=== PATIENT | female | born 1965 | race Caucasian/White ===

== ENCOUNTER → 2021-02-18 16:57 | Outpatient (CLI) | payer BC, SELFPAY ==
--- NOTE | ~2021-02-18 | XR_ITS ---
XR knee RT 3V DATE: 02/18/2021 17:12 INDICATION: Right knee pain TECHNIQUE: Casper and standing AP and lateral views COMPARISON: None FINDINGS: There is mild periarticular spurring of the patella and mild lateral shift of the patella a t the patellofemoral joint. There is minimal periarticular spurring at the medial compartment. No fracture or dislocation or joint effusion. No periosteal reaction or bone destruction. No radiopaq ue intra-articular loose body or chondrocalcinosis. Joint spaces are relatively preserved. IMPRESSION: Minimal osteoarthritis at the patellofemoral and medial compartments Reviewed, dictated and finalized at location A. IMPRESSION: Minimal osteoarthritis at the patellofemoral and medial compartment s
== END ==
PROVIDERS: PCP Family Medicine; Visit Provider Nurse Practitioner Family
DX: M17.11 Unilateral primary osteoarthritis, right knee (principal)
CPT/HCPCS: 73562

== ENCOUNTER → 2022-11-09 08:38 | Outpatient (CLI) | payer BC, SELFPAY ==
--- NOTE | ~2022-11-09 | XR_ITS ---
EXAMINATION: XR chest 2V Exam Date/Time: 11/09/2022 8:43 [employer] HISTORY: R05.3 - Chronic cough Comparison: None available. RESULT: Lines, tubes, and devices: None. Lungs and pleura: Mild diffuse reticular opacities, more prominent in today's examination. Cardiomediastinal silhouette: Stable. Other: No acute osseous or upper abdominal finding. IMPRESSION: Pulmonary opacities may represent mild bronchiolitis, as can be seen with atypical infection, asthma, aspiration, and small airways disease. Reviewed, dictated and finalized at location K. S [employer]ER IMPRESSION: Pulmonary opacities may represent mild bronchiolitis, as can be seen with atypi yogesh infection, asthma, aspiration, and small airways disease.
== END ==
PROVIDERS: PCP Nurse Practitioner Family; Visit Provider Nurse Practitioner Family
DX: R05.3 Chronic cough (principal); R91.8 Other nonspecific abnormal finding of lung field
CPT/HCPCS: 71046

== ENCOUNTER → 2023-03-11 14:17 | Outpatient (CLI) | payer BC, SELFPAY ==
--- NOTE | ~2023-03-11 | XR_ITS ---
EXAM: XR knee LT 3V DATE: 03/11/2023 14:49 HISTORY: M25.562 - Pain in left knee . COMPARISON: None available. FINDINGS: Normal mineralization. No fracture or dislocation. No lytic or blastic lesion. Moderate me dial and mild lateral joint space narrowing. Mild tricompartmental osteophytosis. Quadriceps and yonug llar tendon enthesopathy. Small volume joint fluid. No erosion or periosteal change. Soft tissues wit hin normal limits. IMPRESSION: Moderate tricompartmental knee osteoarthritis. Reviewed, dictated and finalized at location K.
== END ==
PROVIDERS: PCP Family Medicine; Visit Provider Nurse Practitioner Family
DX: M17.12 Unilateral primary osteoarthritis, left knee (principal)
CPT/HCPCS: 73562

== ENCOUNTER → 2023-05-12 10:04 | Outpatient (CLI) | payer BC, SELFPAY ==
--- NOTE | ~2023-05-12 | MM_ITS ---
EXAMINATION: MM screening francisco BI w henrietta HISTORY: Screening mammogram TECHNIQUE: Craniocaudal and mediolateral oblique 3-D tomosynthesis images were obtained and synthetic 2-D images were generated. CAD analysis was submitted and interpreted. COMPARISON: 03/22/2014 diagnostic left mammogram and left breast ultrasound 03/14/2013 bilateral screening mammogram BREAST PARENCHYMAL COMPOSITION: The breasts are almost entirely fatty. FINDINGS: There is no evidence of suspicious mass, calcification, or architectural distortion to sugg est malignancy in either breast. There has been no suspicious interval change. IMPRESSION: 1. No mammographic evidence of malignancy. 2. Recommend routine screening mammography in one year. BI-RADS Category 1: Negative Reviewed, dictated and finalized at location A.
== END ==
PROVIDERS: Visit Provider Obstetrics & Gynecology Gynecology
DX: Z12.31 Encounter for screening mammogram for malignant neoplasm of breast (principal)
CPT/HCPCS: 77063; 77067

== ENCOUNTER 2024-06-21 08:36 | Outpatient (CLI) | payer OTHER, SELFPAY ==
--- NOTE | ~2024-06-21 | MM_ITS ---
EXAMINATION: MM screening francisco BI w henrietta HISTORY: Screening TECHNIQUE: Craniocaudal and mediolateral oblique 3-D tomosynthesis images were obtained and synthetic 2-D images were generated. CAD analysis was submitted and interpreted. COMPARISON: 05/12/2023 BREAST PARENCHYMAL COMPOSITION: Not Dense: The breasts are almost entirely fatty. FINDINGS: There is no evidence of suspicious mass, calcification, or architectural distortion to sugg est malignancy in either breast. There has been no suspicious interval change. IMPRESSION: 1. No mammographic evidence of malignancy. 2. Recommend routine screening mammography in one year. BI-RADS Category 1: Negative Reviewed, dictated and finalized at location B.
== END 2024-06-21 08:37 | disposition home or self-care (01) ==
LOC: MICIMG 08:39
PROVIDERS: PCP Obstetrics & Gynecology Gynecology; Visit Provider Obstetrics & Gynecology Gynecology
DX: Z12.31 Encounter for screening mammogram for malignant neoplasm of breast (principal)
CPT/HCPCS: 77063; 77067